=== PATIENT | female | born 1980 | race Caucasian/White ===

== ENCOUNTER 2017-03-26 13:28 | Inpatient (IN) | payer OTHER ==
[~2017-03-26] VITALS: Ht 170.2 cm; Wt 82.3 kg
[~2017-03-26 13:28] MED LIST: CYCLOBENZAPRINE10 MG PO; DILAUDID4 MG PO; FLOVENT HFA110 MCG IN; GABAPENTIN800 MG PO; NAPROSYN500 MG PO; NORTRIPTYLINE H50 MG PO; PERPHENAZINE16 MG PO; PROAIR HFA IN; TRAMADOL HCL50 MG PO; TRILAFON4 MG PO
--- NOTE | 2017-03-26 15:07 | DIAGNOSTIC IMAGING REPORT ---
PROCEDURE: CT ABD/PELVIS WITH CONTRAST INDICATION: Upper abdominal pain. Nausea. Elevated liver function studies. History of section. TECHNIQUE: 125 ml of Isovue 300 were injected intravenously and axial images were obtained of the entire abdomen and pelvis with sagittal and coronal reformations. COMPARISON: None. FINDINGS: ABDOMEN: Mild generalized thickening and inflammatory changes of the pancreas with mild dilation of the pancreatic duct, and moderate inflammation of the second segment of the duodenum. Associated small amount of retroperitoneal fluid in the region of the duodenum and pancreatic tail. There is mild dilation of the common bile duct (8 mm). Gallbladder appears normal (noncalcified calculi not exclude). Moderate fatty infiltration of the liver. Spleen (10.3 cm), kidneys, and aorta are normal. Bowel pattern is normal, including appendix. There is a 30% old compression deformity of the T10 vertebral body. PELVIS: Uterus and adnexal structures are normal. No evidence of free fluid. IMPRESSION: 1. Mild inflammatory changes of the pancreas and second segment of the duodenum, with mild dilation pancreatic duct. Overall appearance is consistent with pancreatitis, although duodenitis / peptic disease might be considered. 2. Associated small amount of retroperitoneal fluid surrounding the duodenum and pancreatic tail. 3. Mild dilation of the common bile duct (8 mm). Consider occult common duct stone. 4. Moderate fatty infiltration of the liver. 5. There is a 30% old compression deformity T10 vertebral body. 6. Findings discussed with YORDY Patel. All CT scans at this facility use dose modulation, iterative reconstruction, and/or weight-based dosing when appropriate to reduce radiation dose to as low as reasonably achievable.
--- NOTE | 2017-03-26 16:50 | ED CLINICAL REPORT ---
Clinical Report - Physicians/Mid Levels [facility] [address] [place] [address] 03/26/2017 13:29 [id number] Time Seen: 13:45 Mar 26 2017. Arrived- By private vehicle. Historian- patient. HISTORY OF PRESENT ILLNESS Chief Complaint: ABDOMINAL PAIN. It is described as "pain", sharp, stabbing and cramping. Not located in right flank. It is described as located in the right upper quadrant, epigastric area and left upper quadrant and in the upper abdomen. This started today and is still present. The patient has had nausea and loss of appetite. No vomiting or diarrhea. (Abdominal pain since this morning. No sick contacts. No fever. No h/o similar. Patient has had difficulty eating and she has had no appetite. Yesterday she was feeling fine. Denies any melena or hematochezia.). No recent travel. REVIEW OF SYSTEMS No constipation, black stools, difficulty with urination, pain with urination or urinary frequency. No fever, headache, sore throat, chest pain or difficulty breathing. No joint pain, skin rash or chills. All systems otherwise negative, except as recorded above. PAST HISTORY No history of gallstones. Has not had urinary calculi. Problems: Depression. Asthma. Schizophrenia. Dysuria. Alcohol Intoxication. Additional Surgeries: . Knee Surgery. Medications: Gabapentin Oral. Albuterol Sulfate Inhalation. Senna Oral. Cymbalta Oral. Perphenazine Oral. TraMADol HCl Oral. Nortriptyline HCl Oral. Allergies: Penicillins. Sulfa Antibiotics. SOCIAL HISTORY Current every day heavy tobacco smoker- more than 2 packs per day. Alcohol use; consumes two beers a day. History of drug use former, clean for 10 years. ADDITIONAL NOTES The nursing notes have been reviewed. PHYSICAL EXAM Vital Signs: 03/26/2017 13:37 BP: 109/70. HR: 92. RR: 16. O2 saturation: 96%. Temp: 98.7 F. Pain level now: 10. Appearance: Alert. No acute distress. Eyes: Eyes normal inspection. Neck: Normal inspection. Neck supple. CVS: Normal heart rate and rhythm. Heart sounds normal. Rhythm normal. No cardiac murmur. Respiratory: No respiratory distress. Breath sounds normal. Abdomen: Moderate tenderness in the epigastric area. No obesity. Back: Normal inspection. Skin: Skin warm. Normal skin color. Neuro: Oriented X 3. LABS, X-RAYS, AND EKG Abdominal CT: IMPRESSION: 1. Mild inflammatory changes of the pancreas and second segment of the duodenum, with mild dilation pancreatic duct. Overall appearance is consistent with pancreatitis, although duodenitis / peptic disease might be considered. 2. Associated small amount of retroperitoneal fluid surrounding the duodenum and pancreatic tail. 3. Mild dilation of the common bile duct (8 mm). Consider occult common duct stone. 4. Moderate fatty infiltration of the liver. 5. There is a 30% old compression deformity T10 vertebral body. 6. Findings discussed with Lizy Craven PAC. All CT scans at this facility use dose modulation, iterative reconstruction, and/or weight-based dosing when appropriate to reduce radiation dose to as low as reasonably achievable. Electronically Final signed by:Enrike Storey MD 03/26/2017 3:02:41 PM. Abdominal Sonogram: (IMPRESSION: 1. Moderately distended gallbladder with dilated common bile duct (8 mm). While there is no evidence of gallstones, consider occult common duct stone. 2. Mild prominence of the pancreatic duct (2 mm). 3. Moderate fatty infiltration of the liver. 4. Findings discussed with YORDY Patel. Electronically Final signed by:Enrike Storey MD 03/26/2017 4:51:36 PM). Laboratory Tests: PT with INR: (TERI: 03/26/2017 13:50) ( MsgRcvd 03/26/2017 14:54) Final results Test Result Flag Units (Reference) INR 0.9 (0.8-1.2) Low Intensity Therapy: INR 1.5-2.0 PT range 18.5-23.1Mod.Intensity Therapy: INR 2.0-3.0 PT range 23.1-31.5High Intensity Therapy: INR 2.5-3.5 PT range 27.4-35.5High Intensity Therapy 2: INR 3.0-4.0 PT range 31.5-39.3 APTT 31 SECONDS (24-34) Ethyl Alcohol: (TERI: 03/26/2017 13:50) ( [facility] [place] 03/26/2017 16:42) Final results Test Result Flag Units (Reference) ETHYL ALCOHOL <3 L mg/dL (3-10) Urine Drug Screen: (TERI: 03/26/2017 14:15) ( [facility] [place] 03/26/2017 15:03) Final results Test Result Flag Units (Reference) AMPHETAMINE/METHAMPHETAMINE NEGATIVE (NEGATIVE) BARBITURATE NEGATIVE (NEGATIVE) BENZODIAZEPINE NEGATIVE (NEGATIVE) CANNABINOID NEGATIVE (NEGATIVE) COCAINE NEGATIVE (NEGATIVE) ECSTASY NEGATIVE (NEGATIVE) METHADONE NEGATIVE (NEGATIVE) OPIATE NEGATIVE (NEGATIVE) The urine drug screen is a qualitative screening test fordrug overdose and abuse. All screen results should beconsidered as presumptive.Drugs screened for are as follows:BenzodiazepinesCocaineAmphetamines/MetamphetaminesTHC (Tetrahydrocannabinol)OpiatesBarbituratesEcstasyMethadonePositive results are unconfirmed. For confirmation, notifythe lab for the specimen to be sent to the reference lab.All confirmations must be performed by a differentmethodology.The ingestion of natural herbal and plant productscontaining Ephedra/Ephedra metabolites can produce in urineone or more substances capable of cross reacting withamphetamine/methamphetamine immunoassays. These testsprovide a preliminary result only. A more specificalternative chemical method must be used to obtain aconfirmed analytical result. Lipase: (TERI: 03/26/2017 13:50) ( [facility] [place] 03/26/2017 14:45) Final results Test Result Flag Units (Reference) LIPASE 5489 H U/L (73-393) AMYLASE 294 H U/L (25-115) TROPONIN I <0.05 ng/mL (0.00-1.5) TROPONIN REFERENCE RANGE:<0.1 NEGATIVE0.1-1.5 INDETERMINANT>1.5 POSITIVE . PROGRESS AND PROCEDURES Course of Care: Outpatient labs from 12:21: cbc: wbc: 8.28 rbc 4 hgb 12.6 hct 12.6 MCV 99 [id number] Neut: 6.92 CMP: NA 130 K4.2 Chloride 96 CO2 20 Bun 6 cr 0.73 Glucose 113 t. bili 0.6 Ca 9.0 AST: 371 ALT 95 T. Protein 6.7 Amylase: 269 Lipase > 600 breathelyzer 0 neg upreg. Here in here patient with epigastric abdominal pain, no nausea or vomiting. Patient was drinking 2 beers a day over the last 1 year. Denies any recent drug use. Denies history of similar pain. Denies any sick contacts, fevers or chills. Patient with no signs of leukocytosis, elevated lipase at greater than 5000, with elevated LFT as well as elevated alkaline phosphatase. T bili is unremarkable. Patient with CT contrast of abdomen with signs of pancreatitis, with colon bile duct dilation recommended for ultrasound. Ultrasound was signs of common bile duct dilation. Case discussed with Dr. ren, on-call hospitalist, who accepts the patient for admission, and recommend surgical consult as well. Case discussed with , who will consult for the patient, and is recommending a HIDA scan in the morning. 03/26/2017 16:41 BP: 123/80. HR: 86. RR: 15. O2 saturation: 98%. Pain level now: 04/22. 03/26/2017 15:30 BP: 121/77. HR: 84. RR: 17. O2 saturation: 96%. Pain level now: 04/22. 03/26/2017 15:00 BP: 121/74. HR: 88. RR: 15. O2 saturation: 94%. Pain level now: 04/22. 03/26/2017 14:42 BP: 123/78. HR: 90. RR: 15. O2 saturation: 96%. Pain level now: 04/22. Patient is stable. Symptoms better. Discussed case with hospitalist. Agreed upon treatment plan and decision to admit. Health care provider will see patient in ED. Call placed to health care provider Surgeon, will see patient in hospital. Patient/family counseled. Disposition: Admitted to Acute Care. CLINICAL IMPRESSION Substance dependence problems: dependence on alcohol. Pancreatitis. (Electronically signed by Nathalie Craven P.A.-C 03/26/2017 17:16) Addenda for KANDI MANRIQUEZ VisitID: [id number] Date: 03/26/2017 03/26/2017 17:23 EKG : vent rate [address] changes or elevationpr interval 154 normal sinus rhythm. (Electronically signed by Nathalie Craven P.A.-C - 03/26/2017 17:23)
--- NOTE | 2017-03-26 16:50 | ED CLINICAL REPORT ---
Clinical Report - Physicians/Mid Levels [facility] [address] [place] [address] 03/26/2017 13:29 [id number] Time Seen: 13:45 Mar 26 2017. Arrived- By private vehicle. Historian- patient. HISTORY OF PRESENT ILLNESS Chief Complaint: ABDOMINAL PAIN. It is described as "pain", sharp, stabbing and cramping. Not located in right flank. It is described as located in the right upper quadrant, epigastric area and left upper quadrant and in the upper abdomen. This started today and is still present. The patient has had nausea and loss of appetite. No vomiting or diarrhea. (Abdominal pain since this morning. No sick contacts. No fever. No h/o similar. Patient has had difficulty eating and she has had no appetite. Yesterday she was feeling fine. Denies any melena or hematochezia.). No recent travel. REVIEW OF SYSTEMS No constipation, black stools, difficulty with urination, pain with urination or urinary frequency. No fever, headache, sore throat, chest pain or difficulty breathing. No joint pain, skin rash or chills. All systems otherwise negative, except as recorded above. PAST HISTORY No history of gallstones. Has not had urinary calculi. Problems: Depression. Asthma. Schizophrenia. Dysuria. Alcohol Intoxication. Additional Surgeries: . Knee Surgery. Medications: Gabapentin Oral. Albuterol Sulfate Inhalation. Senna Oral. Cymbalta Oral. Perphenazine Oral. TraMADol HCl Oral. Nortriptyline HCl Oral. Allergies: Penicillins. Sulfa Antibiotics. SOCIAL HISTORY Current every day heavy tobacco smoker- more than 2 packs per day. Alcohol use; consumes two beers a day. History of drug use former, clean for 10 years. ADDITIONAL NOTES The nursing notes have been reviewed. PHYSICAL EXAM Vital Signs: 03/26/2017 13:37 BP: 109/70. HR: 92. RR: 16. O2 saturation: 96%. Temp: 98.7 F. Pain level now: 10. Appearance: Alert. No acute distress. Eyes: Eyes normal inspection. Neck: Normal inspection. Neck supple. CVS: Normal heart rate and rhythm. Heart sounds normal. Rhythm normal. No cardiac murmur. Respiratory: No respiratory distress. Breath sounds normal. Abdomen: Moderate tenderness in the epigastric area. No obesity. Back: Normal inspection. Skin: Skin warm. Normal skin color. Neuro: Oriented X 3. LABS, X-RAYS, AND EKG Abdominal CT: IMPRESSION: 1. Mild inflammatory changes of the pancreas and second segment of the duodenum, with mild dilation pancreatic duct. Overall appearance is consistent with pancreatitis, although duodenitis / peptic disease might be considered. 2. Associated small amount of retroperitoneal fluid surrounding the duodenum and pancreatic tail. 3. Mild dilation of the common bile duct (8 mm). Consider occult common duct stone. 4. Moderate fatty infiltration of the liver. 5. There is a 30% old compression deformity T10 vertebral body. 6. Findings discussed with Lizy Craven PAC. All CT scans at this facility use dose modulation, iterative reconstruction, and/or weight-based dosing when appropriate to reduce radiation dose to as low as reasonably achievable. Electronically Final signed by:Enrike Storey MD 03/26/2017 3:02:41 PM. Abdominal Sonogram: (IMPRESSION: 1. Moderately distended gallbladder with dilated common bile duct (8 mm). While there is no evidence of gallstones, consider occult common duct stone. 2. Mild prominence of the pancreatic duct (2 mm). 3. Moderate fatty infiltration of the liver. 4. Findings discussed with YORDY Patel. Electronically Final signed by:Enrike Storey MD 03/26/2017 4:51:36 PM). Laboratory Tests: PT with INR: (TERI: 03/26/2017 13:50) ( MsgRcvd 03/26/2017 14:54) Final results Test Result Flag Units (Reference) INR 0.9 (0.8-1.2) Low Intensity Therapy: INR 1.5-2.0 PT range 18.5-23.1Mod.Intensity Therapy: INR 2.0-3.0 PT range 23.1-31.5High Intensity Therapy: INR 2.5-3.5 PT range 27.4-35.5High Intensity Therapy 2: INR 3.0-4.0 PT range 31.5-39.3 APTT 31 SECONDS (24-34) Ethyl Alcohol: (TERI: 03/26/2017 13:50) ( [facility] 03/26/[facility] 16:42) Final results Test Result Flag Units (Reference) ETHYL ALCOHOL <3 L mg/dL (3-10) Urine Drug Screen: (TERI: 03/26/2017 14:15) ( [facility] 03/26/2017 15:03) Final results Test Result Flag Units (Reference) AMPHETAMINE/METHAMPHETAMINE NEGATIVE (NEGATIVE) BARBITURATE NEGATIVE (NEGATIVE) BENZODIAZEPINE NEGATIVE (NEGATIVE) CANNABINOID NEGATIVE (NEGATIVE) COCAINE NEGATIVE (NEGATIVE) ECSTASY NEGATIVE (NEGATIVE) METHADONE NEGATIVE (NEGATIVE) OPIATE NEGATIVE (NEGATIVE) The urine drug screen is a qualitative screening test fordrug overdose and abuse. All screen results should beconsidered as presumptive.Drugs screened for are as follows:BenzodiazepinesCocaineAmphetamines/MetamphetaminesTHC (Tetrahydrocannabinol)OpiatesBarbituratesEcstasyMethadonePositive results are unconfirmed. For confirmation, notifythe lab for the specimen to be sent to the reference lab.All confirmations must be performed by a differentmethodology.The ingestion of natural herbal and plant productscontaining Ephedra/Ephedra metabolites can produce in urineone or more substances capable of cross reacting withamphetamine/methamphetamine immunoassays. These testsprovide a preliminary result only. A more specificalternative chemical method must be used to obtain aconfirmed analytical result. Lipase: (TERI: 03/26/2017 13:50) ( [facility] [place] 03/26/2017 14:45) Final results Test Result Flag Units (Reference) LIPASE 5489 H U/L (73-393) AMYLASE 294 H U/L (25-115) TROPONIN I <0.05 ng/mL (0.00-1.5) TROPONIN REFERENCE RANGE:<0.1 NEGATIVE0.1-1.5 INDETERMINANT>1.5 POSITIVE . PROGRESS AND PROCEDURES Course of Care: Outpatient labs from 12:21: cbc: wbc: 8.28 rbc 4 hgb 12.6 hct 12.6 MCV 99 [id number] Neut: 6.92 CMP: NA 130 K4.2 Chloride 96 CO2 20 Bun 6 cr 0.73 Glucose 113 t. bili 0.6 Ca 9.0 AST: 371 ALT 95 T. Protein 6.7 Amylase: 269 Lipase > 600 breathelyzer 0 neg upreg. Here in here patient with epigastric abdominal pain, no nausea or vomiting. Patient was drinking 2 beers a day over the last 1 year. Denies any recent drug use. Denies history of similar pain. Denies any sick contacts, fevers or chills. Patient with no signs of leukocytosis, elevated lipase at greater than 5000, with elevated LFT as well as elevated alkaline phosphatase. T bili is unremarkable. Patient with CT contrast of abdomen with signs of pancreatitis, with colon bile duct dilation recommended for ultrasound. Ultrasound was signs of common bile duct dilation. Case discussed with Dr. ren, on-call hospitalist, who accepts the patient for admission, and recommend surgical consult as well. Case discussed with , who will consult for the patient, and is recommending a HIDA scan in the morning. 03/26/2017 16:41 BP: 123/80. HR: 86. RR: 15. O2 saturation: 98%. Pain level now: 04/22. 03/26/2017 15:30 BP: 121/77. HR: 84. RR: 17. O2 saturation: 96%. Pain level now: 04/22. 03/26/2017 15:00 BP: 121/74. HR: 88. RR: 15. O2 saturation: 94%. Pain level now: 04/22. 03/26/2017 14:42 BP: 123/78. HR: 90. RR: 15. O2 saturation: 96%. Pain level now: 04/22. Patient is stable. Symptoms better. Discussed case with hospitalist. Agreed upon treatment plan and decision to admit. Health care provider will see patient in ED. Call placed to health care provider Surgeon, will see patient in hospital. Patient/family counseled. Disposition: Admitted to Acute Care. CLINICAL IMPRESSION Substance dependence problems: dependence on alcohol. Pancreatitis. (Electronically signed by Nathalie Craven P.A.-C 03/26/2017 17:16) Addenda for KANDI MANRIQUEZ VisitID: [id number] Date: 03/26/2017 03/26/2017 17:23 EKG : vent rate [address] changes or elevationpr interval 154 normal sinus rhythm. (Electronically signed by Nathalie Craven P.A.-C - 03/26/2017 17:23)
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
--- NOTE | 2017-03-26 16:51 | ED ORDER SUMMARY ---
..... Patient: KANDI MANRIQUEZ OrderSheet [facility] VisitID: [id number] [address] [place] [address] 36y, F Registration Date/Time: 03/26/2017 ORDER SHEET Weight: 81.6 kg Allergies: Penicillins, Sulfa Antibiotics GENERAL ORDERS: CBC w Diff Urgent (13:45 03/26/2017 EKoroleva P.A.-C) (Cancelled: Other13:46 EKoroleva P.A.-C) CMP Urgent (13:45 03/26/2017 EKoroleva P.A.-C) (Cancelled: Other13:46 EKoroleva P.A.-C) UA-Culture if indicated Urgent (13:45 03/26/2017 EKoroleva P.A.-C) (Ack 13:47 Brennan) (14:24 RMarsden R.N.) PT with INR Urgent (13:45 03/26/2017 EKoroleva P.A.-C) (Ack 13:47 KHoerner) (13:52 JDeElena R.N.) PTT Urgent (13:45 03/26/2017 EKoroleva P.A.-C) (Ack 13:47 KHoerner) (13:52 JDeElena R.N.) Lipase Urgent (13:45 03/26/2017 EKoroleva P.A.-C) (Ack 13:47 KHoerner) (13:52 JDeElena R.N.) Amylase Urgent (13:45 03/26/2017 EKoroleva P.A.-C) (Ack 13:47 KHoerner) (13:52 JDeElena R.N.) Troponin-I Urgent (13:45 03/26/2017 EKoroleva P.A.-C) (Ack 13:47 KHoerner) (13:52 JDeElena R.N.) EKG - ER Stat (13:45 03/26/2017 EKoroleva P.A.-C) (13:47 JDeElena R.N.) (13:47 KHoerner) CT Abd/Pel w Cont (No) (outpatient lab 0.73) Urgent (13:46 03/26/2017 EKoroleva P.A.-C) (Ack 13:50 KHoerner) (14:43 RMarsden R.N.) POC - Urine hCG (13:50 03/26/2017 EKoroleva P.A.-C) (14:23 RMarsden R.N.) Urine Drug Screen Urgent (14:27 03/26/2017 EKoroleva P.A.-C) (14:28 KHoerner) UA-Culture if indicated Urgent (14:27 03/26/2017 EKoroleva P.A.-C) (Cancelled: Other14:27 EKoroleva P.A.-C) US Abdomen Limited (No) Urgent (15:06 03/26/2017 EKoroleva P.A.-C) (Ack 15:08 KHoerner) (16:20 RMarsden R.N.) PCT (Procalcitonin) Urgent (16:26 03/26/2017 EKoroleva P.A.-C) (16:27 RMarsden R.N.) Ethyl Alcohol Urgent (16:31 03/26/2017 EKoroleva P.A.-C) (Ack 16:35 KHoerner) (16:49 RMarsden R.N.) Lactate, Serum Urgent (16:37 03/26/2017 EKoroleva P.A.-C) (Ack 16:44 KHoerner) (16:49 RMarsden R.N.) NPO (17:00 03/26/2017 EKoroleva P.A.-C) (17:14 RMarsden R.N.) MEDICATION ORDERS: IV FLUIDS: IV NS : initial bolus 1000 mL (1000 mL/hr), then 1000 mL/hr for X1 (NOW); Francisco Javier (13:45 03/26/2017 EKoroleva P.A.-C) (13:52 JDeElena R.N.) IV Saline Lock (13:45 03/26/2017 EKoroleva P.A.-C) (13:52 JDeElena R.N.) Dilaudid IV 1 mg (HIGH ALERT MEDICATION, NOW) (14:44 03/26/2017 Sara Moore-C) (Ack 14:44 RMarsden R.N.) (14:47 RMarsden R.N.) IV NS with NS 2 additional liters @1000ml/hr (for a total of 3 liters): initial bolus none -, then none - (NOW) (14:52 03/26/2017 Pedritoeck R.N. verbal order read back to Sara Jerez) (Ack 15:13 RMarsden R.N.) (15:19 RMarsden R.N.) Dilaudid IV 1 mg (HIGH ALERT MEDICATION, NOW) (17:00 03/26/2017 Sara Jerez) (Ack 17:02 RMarsden R.N.) (17:10 RMarsden R.N.) ORDER SHEET NOTES: [Electronically signed by Nathalie Craven P.A.-C (17:16 03/26/2017)] [Electronically signed by Mary Roth R.N. (19:06 03/26/2017)] [Electronically locked/signed by Mary Roth R.N. (19:06 03/26/2017)]
--- NOTE | 2017-03-26 16:51 | ED ORDER SUMMARY ---
..... Patient: KANDI MANRIQUEZ OrderSheet [facility] VisitID: [id number] [address] [place] [address] 36y, F Registration Date/Time: 03/26/2017 ORDER SHEET Weight: 81.6 kg Allergies: Penicillins, Sulfa Antibiotics GENERAL ORDERS: CBC w Diff Urgent (13:45 03/26/2017 EKoroleva P.A.-C) (Cancelled: Other13:46 EKoroleva P.A.-C) CMP Urgent (13:45 03/26/2017 EKoroleva P.A.-C) (Cancelled: Other13:46 EKoroleva P.A.-C) UA-Culture if indicated Urgent (13:45 03/26/2017 EKoroleva P.A.-C) (Ack 13:47 Brennan) (14:24 RMarsden R.N.) PT with INR Urgent (13:45 03/26/2017 EKoroleva P.A.-C) (Ack 13:47 KHoerner) (13:52 JDeElena R.N.) PTT Urgent (13:45 03/26/2017 EKoroleva P.A.-C) (Ack 13:47 KHoerner) (13:52 JDeElena R.N.) Lipase Urgent (13:45 03/26/2017 EKoroleva P.A.-C) (Ack 13:47 KHoerner) (13:52 JDeElena R.N.) Amylase Urgent (13:45 03/26/2017 EKoroleva P.A.-C) (Ack 13:47 KHoerner) (13:52 JDeElena R.N.) Troponin-I Urgent (13:45 03/26/2017 EKoroleva P.A.-C) (Ack 13:47 KHoerner) (13:52 JDeElena R.N.) EKG - ER Stat (13:45 03/26/2017 EKoroleva P.A.-C) (13:47 JDeElena R.N.) (13:47 KHoerner) CT Abd/Pel w Cont (No) (outpatient lab 0.73) Urgent (13:46 03/26/2017 EKoroleva P.A.-C) (Ack 13:50 KHoerner) (14:43 RMarsden R.N.) POC - Urine hCG (13:50 03/26/2017 EKoroleva P.A.-C) (14:23 RMarsden R.N.) Urine Drug Screen Urgent (14:27 03/26/2017 EKoroleva P.A.-C) (14:28 KHoerner) UA-Culture if indicated Urgent (14:27 03/26/2017 EKoroleva P.A.-C) (Cancelled: Other14:27 EKoroleva P.A.-C) US Abdomen Limited (No) Urgent (15:06 03/26/2017 EKoroleva P.A.-C) (Ack 15:08 KHoerner) (16:20 RMarsden R.N.) PCT (Procalcitonin) Urgent (16:26 03/26/2017 EKoroleva P.A.-C) (16:27 RMarsden R.N.) Ethyl Alcohol Urgent (16:31 03/26/2017 EKoroleva P.A.-C) (Ack 16:35 KHoerner) (16:49 RMarsden R.N.) Lactate, Serum Urgent (16:37 03/26/2017 EKoroleva P.A.-C) (Ack 16:44 KHoerner) (16:49 RMarsden R.N.) NPO (17:00 03/26/2017 EKoroleva P.A.-C) (17:14 RMarsden R.N.) MEDICATION ORDERS: IV FLUIDS: IV NS : initial bolus 1000 mL (1000 mL/hr), then 1000 mL/hr for X1 (NOW); Francisco Javier (13:45 03/26/2017 EKoroleva P.A.-C) (13:52 JDeElena R.N.) IV Saline Lock (13:45 03/26/2017 EKoroleva P.A.-C) (13:52 JDeElena R.N.) Dilaudid IV 1 mg (HIGH ALERT MEDICATION, NOW) (14:44 03/26/2017 Sara Moore-C) (Ack 14:44 RMarsden R.N.) (14:47 RMarsden R.N.) IV NS with NS 2 additional liters @1000ml/hr (for a total of 3 liters): initial bolus none -, then none - (NOW) (14:52 03/26/2017 Pedritoeck R.N. verbal order read back to Sara Jerez) (Ack 15:13 RMarsden R.N.) (15:19 RMarsden R.N.) Dilaudid IV 1 mg (HIGH ALERT MEDICATION, NOW) (17:00 03/26/2017 Sara Jerez) (Ack 17:02 RMarsden R.N.) (17:10 RMarsden R.N.) ORDER SHEET NOTES: [Electronically signed by Nathalie Craven P.A.-C (17:16 03/26/2017)] [Electronically signed by Mary Roth R.N. (19:06 03/26/2017)] [Electronically locked/signed by Mary Roth R.N. (19:06 03/26/2017)]
--- NOTE | 2017-03-26 16:55 | DIAGNOSTIC IMAGING REPORT ---
PROCEDURE: US ABDOMEN ULTRASOUND-LIMITED INDICATION: RUQ PAIN TECHNIQUE: Ascencio scale and color Doppler sonographic images of the abdomen were obtained. COMPARISON: None. FINDINGS: Gallbladder is moderately distended (12.5 cm), but no evidence of wall thickening and no evidence of gallstones. Common duct is moderately dilated (8 mm). There is mild prominence of the pancreatic duct (is 2 mm). There is increased echogenicity liver compatible fatty infiltration. Portions of the aorta and right kidney are seen, and are normal. IMPRESSION: 1. Moderately distended gallbladder with dilated common bile duct (8 mm). While there is no evidence of gallstones, consider occult common duct stone. 2. Mild prominence of the pancreatic duct (2 mm). 3. Moderate fatty infiltration of the liver. 4. Findings discussed with PAC. Joreg
[2017-03-26 18:38] VITALS: BP 113/77
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
--- NOTE | 2017-03-26 19:07 | ED MAR SUMMARY ---
..... Medication Administration Record [facility] [address] [place] [address] Patient: KANDI MANRIQUEZ Visit ID: [id number] 36y, F Weight: 81.6 kg Height/Length: 67 in BMI: 28.2 ALLERGIES: Sulfa Antibiotics, Penicillins Start 13:52 03/26/2017 Gómez Maguire R.N., Stop 15:19 03/26/2017 Mary Roth R.N. Medication Administered: IV NS (SALINE), Dose: IV Fluids, Rate: 1000 mL/hr, Bolus: 1000 mL over 1 hour(s), Dispensed: 1000 mL bag, Site: #1 left hand. Medication Ordered: IV NS : initial bolus 1000 mL (1000 mL/hr), then 1000 mL/hr for X1 (NOW); Francisco Javier. Given 14:47 03/26/2017 Mary Roth R.N. Medication Administered: DILAUDID [IVP] (HYDROMORPHONE HCL PF), Dose: 1 mg IVP over 2 minute(s), Site: #1 left hand. Medication Ordered: Dilaudid IV 1 mg (HIGH ALERT MEDICATION, NOW). Start 15:19 03/26/2017 Mary Roth R.N. Medication Administered: IV NS (SALINE), Dose: IV Fluids, Bolus: 1000 mL wide open, Dispensed: 1000 mL bag, Site: #1 left hand. Medication Ordered: IV NS with NS 2 additional liters @1000ml/hr (for a total of 3 liters): initial bolus none -, then none - (NOW). Given 17:10 03/26/2017 Mary Roth R.N. Medication Administered: DILAUDID [IVP] (HYDROMORPHONE HCL PF), Dose: 1 mg IVP over 2 minute(s), Site: #1 left hand. Medication Ordered: Dilaudid IV 1 mg (HIGH ALERT MEDICATION, NOW).
--- NOTE | 2017-03-26 19:07 | ED DISCHARGE INSTRUCTIONS ---
Patient: KANDI MANRIQUEZ General Instructions [facility] VisitID: [id number] [address] [place] [address] 36y, F Registration Date/Time: 03/26/2017 Substance dependence problems: dependence on alcohol. Pancreatitis. (Electronically signed by Nathalie Craven P.A.-C 03/26/2017 17:16)
--- NOTE | 2017-03-26 19:07 | ED MAR SUMMARY ---
..... Medication Administration Record [facility] [address] [place] [address] Patient: KANDI MANRIQUEZ Visit ID: [id number] 36y, F Weight: 81.6 kg Height/Length: 67 in BMI: 28.2 ALLERGIES: Sulfa Antibiotics, Penicillins Start 13:52 03/26/2017 Gómez Maguire R.N., Stop 15:19 03/26/2017 Mary Roth R.N. Medication Administered: IV NS (SALINE), Dose: IV Fluids, Rate: 1000 mL/hr, Bolus: 1000 mL over 1 hour(s), Dispensed: 1000 mL bag, Site: #1 left hand. Medication Ordered: IV NS : initial bolus 1000 mL (1000 mL/hr), then 1000 mL/hr for X1 (NOW); Francisco Javier. Given 14:47 03/26/2017 Mary Roth R.N. Medication Administered: DILAUDID [IVP] (HYDROMORPHONE HCL PF), Dose: 1 mg IVP over 2 minute(s), Site: #1 left hand. Medication Ordered: Dilaudid IV 1 mg (HIGH ALERT MEDICATION, NOW). Start 15:19 03/26/2017 Mary Roth R.N. Medication Administered: IV NS (SALINE), Dose: IV Fluids, Bolus: 1000 mL wide open, Dispensed: 1000 mL bag, Site: #1 left hand. Medication Ordered: IV NS with NS 2 additional liters @1000ml/hr (for a total of 3 liters): initial bolus none -, then none - (NOW). Given 17:10 03/26/2017 Mary Roth R.N. Medication Administered: DILAUDID [IVP] (HYDROMORPHONE HCL PF), Dose: 1 mg IVP over 2 minute(s), Site: #1 left hand. Medication Ordered: Dilaudid IV 1 mg (HIGH ALERT MEDICATION, NOW).
--- NOTE | 2017-03-26 19:07 | ED MED RECONCILIATION SUMMARY ---
Patient: KANDI MANRIQUEZ Medication Reconciliation Report [facility] VisitID: [id number] [address] [place] [address] 36y, F Registration Date/Time: 03/26/2017 Weight: 81.6 kg Height/Length: 67 in. BMI: 28.2 ALLERGIES: Penicillins, Sulfa Antibiotics The patient's Home Medications are listed below: THE FOLLOWING MEDICATIONS NEED TO BE RECONCILED: Albuterol Sulfate Inhalation Cymbalta Oral Gabapentin Oral Nortriptyline HCl Oral Perphenazine Oral Senna Oral TraMADol HCl Oral The source(s) of the original Home Medication information: Not obtained. The following Medications were given to the patient in the Emergency Department: IV NS IV Fluids bolus 1000 mL over 1 hour(s), then 1000 mL/hr, administered: 03/26/2017 1:52:00 PM Dilaudid [IVP] IVP 1 mg, administered: 03/26/2017 2:47:00 PM IV NS IV Fluids bolus 1000 mL wide open, administered: 03/26/2017 3:19:00 PM Dilaudid [IVP] IVP 1 mg, administered: 03/26/2017 5:10:00 PM The following Medications were prescribed to the patient: None.
--- NOTE | 2017-03-26 19:07 | ED DISCHARGE INSTRUCTIONS ---
Patient: KANDI MANRIQUEZ General Instructions [facility] VisitID: [id number] [address] [place] [address] 36y, F Registration Date/Time: 03/26/2017 Substance dependence problems: dependence on alcohol. Pancreatitis. (Electronically signed by Nathalie Craven P.A.-C 03/26/2017 17:16)
--- NOTE | 2017-03-26 19:07 | ED MED RECONCILIATION SUMMARY ---
Patient: KANDI MANRIQUEZ Medication Reconciliation Report [facility] VisitID: [id number] [address] [place] [address] 36y, F Registration Date/Time: 03/26/2017 Weight: 81.6 kg Height/Length: 67 in. BMI: 28.2 ALLERGIES: Penicillins, Sulfa Antibiotics The patient's Home Medications are listed below: THE FOLLOWING MEDICATIONS NEED TO BE RECONCILED: Albuterol Sulfate Inhalation Cymbalta Oral Gabapentin Oral Nortriptyline HCl Oral Perphenazine Oral Senna Oral TraMADol HCl Oral The source(s) of the original Home Medication information: Not obtained. The following Medications were given to the patient in the Emergency Department: IV NS IV Fluids bolus 1000 mL over 1 hour(s), then 1000 mL/hr, administered: 03/26/2017 1:52:00 PM Dilaudid [IVP] IVP 1 mg, administered: 03/26/2017 2:47:00 PM IV NS IV Fluids bolus 1000 mL wide open, administered: 03/26/2017 3:19:00 PM Dilaudid [IVP] IVP 1 mg, administered: 03/26/2017 5:10:00 PM The following Medications were prescribed to the patient: None.
[2017-03-26 22:21] VITALS: BP 125/79
[2017-03-27] VITALS (7 sets, daily range): BP systolic 116–141; BP diastolic 72–92
[2017-03-27] MEDS ORDERED: CYCLOBENZAPRINE10 MG PO (01:16)
[2017-03-27] MEDS ORDERED: CYMBALTA20 MG PO (01:17)
[2017-03-27] MEDS ORDERED: SENNA-LAX8.6 MG PO (01:18)
--- NOTE | 2017-03-27 07:25 | Progress Note ---
Subjective General Note Date: March 27, 2017 Admission Date: March 26, 2017 Hospital Day: 2 PCP: Darya Conte M.D. Status: Inpatient, CCU Advanced Directive: FULL CODE Room: 303 Brief History: The patient is a 36-year-old white female with a significant past medical history of paranoid schizophrenia, depression, asthma, fibromyalgia, nicootene dependance alcohol use who presented to [facility] emergency room on the day of admission secondary to complaints of pain in the abdominal region. Patient had previously been at the [facility] urgent care clinic where an elevated lipase was discovered. found. She was transferred to the the [facility] ED for further evaluations. CT scan and ultrasound study of the pancreas and gallbladder showed possibility of a stone had passed. Also showing were elevated transaminases, but a normal T bili. Secondary to the above, the patient was admitted by Alejandro Robles M.D. for further evaluation and treatment. For other history present illness, past medical history, family history, social history, review of systems, and admission physical examination please see the patient's history and physical examination and ER visit note in the patient's medical record. Subjective: The patient states her status is improved today. Decrease abdominal pain. No nausea or vomiting. Patient requests: None Medications and Allergies Medications Current Medications Sig/Alyce Start time Last Medication Dose Route Stop Time Status Admin Cyclobenzaprine HCl 10 MG TID 03/26 2200 AC 03/27 PO 0515 Duloxetine HCl 30 MG TID 03/26 2200 AC 05/ PO 0515 Gabapentin 900 MG TID 03/26 2200 AC 05/ PO 0515 Famotidine/Sodium 50 ML Q12HR 03/26 2100 AC 03/26 Chloride IV 213 Nortriptyline HCl 50 MG QHS 03/26 2100 AC 0514 PO 2133 Thiamine HCl 100 MG 1400 03/26 2037 AC 0514 Dextrose/Water 50 ML IV 210 Fluticasone See Dose RTBID 03/26 2000 AC Propionate Insts (1) IN Albuterol/Ipratropium 3 ML RTQ6H PRN 03/26 1845 AC IN Tramadol HCl See Dose TID PRN 03/26 1845 AC Insts (2) PO Nicotine 21 MG DAILY 03/26 1838 AC 03/26 TOP 2009 Hydromorphone HCl 1 MG Q1H PRN 05/14 1830 AC 05/15 IV 0324 Ondansetron HCl 4 MG Q6H PRN 03/26 183 03/27 IV 0329 Sodium Chloride 1,000 ML ASDIRECTED 03/26 170 AC 03/27 IV 03/27 170 032 Dose Instructions: (1)Fluticasone Propionate: 2 CLICKS (2)Tramadol HCl: 50 - 100 MG Allergies Coded Allergies: Penicillins (Severe, 01/15/16) Sulfa Drugs (Severe, 01/15/16) Ibuprofen (Intermediate, HURTS STOMACH 01/15/16) Physical Exam Vital Signs / I&Os Vital Signs Date Time Temp Pulse Resp B/P Pulse O2 O2 Flow FiO2 Ox Delivery Rate 03/27 0649 98.4 85 19 125/82 95 Room Air 03/27 0245 70 14 116/72 97 Room Air 03/26 2222 99.0 03/26 2221 75 14 125/79 96 Room Air 03/26 1838 99.1 81 16 113/77 93 Room Air I&O 03/27 0000 03/26 1600 03/26 0800 Intake Total 0 Output Total 1450 Balance -1450 General Appearance Alert, Oriented X3, Cooperative, No acute distress Lungs Scattered rhonchi. No wheezes. Cardiovascular Regular rate and rhythm, Normal S1 and S2 Abdomen Normal bowel sounds, Soft, mild epigastric/upper quadrant tenderness. No rebound Extremities No cyanosis, No clubbing Neurological Cranial nerves intact, No lateralizing signs Psych/Mental Status Mental status normal, Mood normal LAB Results Laboratory Tests 03/27 03/27 03/26 03/26 0445 0445 1650 1415 Chemistry Plasma Sodium (136 - 145 mmol/L) 140 Plasma Potassium (3.5 - 5.1 mmol/L) 4.1 Plasma Chloride (98 - 107 mmol/L) 105 CO2 (Enzymatic) (21 - 32 mmol/L) 25 BUN (7 - 18 mg/dL) 4 Creatinine (0.6 - 1.3 mg/dL) 0.6 Est GFR ( Amer) (mL/min) >60 Est GFR (Non-Af Amer) (mL/min) >60 Glucose (70 - 110 mg/dL) 85 Hemoglobin A1c % (4.5 - 6.2 %) 5.3 Lactic Acid (0.4 - 2.0 mmol/L) 0.5 Plasma Calcium (8.5 - 10.1 mg/dL) 8.1 Plasma Magnesium (1.8 - 2.4 mg/dL) 1.9 Total Bilirubin (0.0 - 1.0 mg/dL) 0.5 AST (15 - 37 U/L) 211 ALT (12 - 78 U/L) 111 Alkaline Phosphatase (46 - 116 U/L) 177 Total Protein (6.4 - 8.2 g/dL) 6.1 Albumin (3.3 - 5.0 g/dL) 2.7 Triglycerides (30 - 200 mg/dL) 21 Amylase (25 - 115 U/L) 330 Lipase (73 - 393 U/L) 2746 Coagulation INR (0.8 - 1.2) 1.0 Hematology WBC (4.5 - 11.5 K/uL) 6.8 RBC (4.00 - 5.20 M/uL) 3.63 Hgb (12.0 - 16.0 gm/dL) 11.6 Hct (36.0 - 46.0 %) 34.9 MCV (80 - 100 fL) 96 MCH (26 - 34 pg) 32 RDW (11.6 - 14.8 %) 15.4 Neut % (Auto) (50 - 75 %) 84.6 Lymph % (Auto) (25 - 40 %) 8.9 Leon % (Auto) (3 - 14 %) 3.7 Eos % (Auto) (0 - 4 %) 2.7 Baso % (Auto) (0 - 2 %) 0.1 Plt Count, EDTA (150 - 400 K/uL) 203 PUBS MCHC (31 - 37 g/dL) 33 Toxicology Urine Opiates Screen (NEGATIVE) NEGATIVE Urine Methadone Screen (NEGATIVE) NEGATIVE Ur Barbiturates Screen (NEGATIVE) NEGATIVE U Amphetamin/Meth Scrn (NEGATIVE) NEGATIVE MDMA (Ecstasy) Screen (NEGATIVE) NEGATIVE U Benzodiazepines Scrn (NEGATIVE) NEGATIVE Urine Cocaine Screen (NEGATIVE) NEGATIVE U Cannabinoids Screen (NEGATIVE) NEGATIVE Urines Urine Color YELLOW Urine Appearance CLEAR Urine pH (5.0 - 8.0) 7.0 Ur Specific [place] (1.010 - 1.030) <= 1.005 Urine Protein (NEGATIVE) NEGATIVE Urine Ketones (NEGATIVE) NEGATIVE Urine Blood (NEGATIVE) NEGATIVE Urine Nitrite (NEGATIVE) NEGATIVE Urine Bilirubin (NEGATIVE) NEGATIVE Urine Urobilinogen (0.2 - 1.0 EU/dL) 0.2 Ur Leukocyte Esterase (NEGATIVE) NEGATIVE Urine RBC (0 - 1 rbc/hpf) NONE SEEN Urine WBC (0 - 1 wbc/hpf) 0-1 Ur Epithelial Cells (0 - 5 EPI/hpf) NONE SEEN Urine Bacteria (NONE SEEN) MANY (4+) Urine Glucose (NEGATIVE) NEGATIVE Urine Comment CULTURE INDICATED 03/26 03/26 03/26 1350 1350 1345 Chemistry Troponin (0.00 - 1.5 ng/mL) <0.05 Amylase (25 - 115 U/L) 294 Lipase (73 - 393 U/L) 5489 Procalcitonin (0 - 0.5 ng/mL) <0.5 Coagulation INR (0.8 - 1.2) 0.9 APTT (24 - 34 SECONDS) 31 Hematology WBC Cancelled RBC Cancelled Hgb Cancelled Hct Cancelled MCV Cancelled MCH Cancelled RDW Cancelled Plt Count, EDTA Cancelled PUBS MCHC Cancelled Toxicology Plasma/Serum Ethyl Alc (3 - 10 mg/dL) <3 Microbiology Date/Time Procedure - Status Source Growth 03/26 1845 MRSA Screen - RECD NASAL 03/26 1415 Urine Culture - RECD URINE CC Imaging CT Scan Abdomen IMPRESSION: 1. Mild inflammatory changes of the pancreas and second segment of the duodenum, with mild dilation pancreatic duct. Overall appearance is consistent with pancreatitis, although duodenitis / peptic disease might be considered. 2. Associated small amount of retroperitoneal fluid surrounding the duodenum and pancreatic tail. 3. Mild dilation of the common bile duct (8 mm). Consider occult common duct stone. 4. Moderate fatty infiltration of the liver. 5. There is a 30% old compression deformity T10 vertebral body. 6. Findings discussed with Lizy Craven, PAC. Dictated by: ALON CULP MD D: AGUSTINA;03/26/17 5253 Assessment and Plan Problem List 1. Acute pancreatitis Plan -Patient with findings of acute pancreatitis -No clear relation to alcohol consumption -No hyperlipidemia -Possible gallstone related. -Mild dilatation of common bile duct without evidence of stone at this time. -No hyperbilirubinemia -Recheck labs in a.m. consider HIDA scan if persistent elevation of alkaline phosphatase, bilirubin -Nothing by mouth -IV fluid therapy 2. Fibromyalgia Plan -Stable -Continue outpatient medical management as appropriate 3. Schizophrenia Status Chronic Onset Date Unknown Plan -Stable -Continue outpatient medical management 4. Nicotine dependence Plan -NicoDerm patch -Encourage smoking cessation -Smoking cessation education 5. UTI (urinary tract infection) Status Acute Onset Date Unknown Plan -Patient with findings of UTI -Rocephin 1 g IV daily -Await urine C&S 6. Alcohol use Plan -Mild use per patient's history -Monitor. Alcohol withdrawal symptoms Current status: Fair, stable Anticipated discharge date: Anticipated discharge 3 days Anticipated discharge placement: Home Patient care time: Time spent in chart review, patient interview, physical exam, CPOE, and care documentation: 25 minutes Visit to patient today: 1 Complexity of care: Moderate E&M Codes Rounding: Inpt-Moderate/82096
[2017-03-27] MEDS ORDERED: NORTRIPTYLINE H25 MG PO (09:11)
[2017-03-27] MEDS ORDERED: PERPHENAZINE8 MG PO (09:12)
[2017-03-28 03:27] VITALS: BP 127/86
[2017-03-28 06:01] VITALS: BP 117/85
--- NOTE | 2017-03-28 08:23 | Progress Note ---
Subjective General This patient is a 36-year-old white female with a significant past medical history of paranoid schizophrenia, depression, asthma, fibromyalgia, nicootene dependance alcohol use who presented to [facility] emergency room on the day of admission secondary to complaints of pain in the abdominal region. Patient had previously been at the [facility] urgent care clinic where an elevated lipase was discovered. found. She was transferred to the the [facility] ED for further evaluations. CT scan and ultrasound study of the pancreas and gallbladder showed possibility of a stone had passed. Also showing were elevated transaminases, but a normal T bili. Secondary to the above, the patient was admitted by Alejandro Robles M.D. for further evaluation and treatment. Still has pain in Abdomen, some nause, no vomiting, no BM yet, mild fever, no chills, no cp no dyspnea, sleeping fine, still NPO, has nicotin patch on ROS: Digestion system: negative for Abdominal pain, Vomiting, but mild nausea Constitional: Mild fever, no chills Cardiology: negative for Chest pain, dyspnea Physical Exam Vital Signs / I&Os Vital Signs Date Time Temp Pulse Resp B/P Pulse O2 O2 Flow FiO2 Ox Delivery Rate 03/28 0601 98.2 91 20 117/85 94 Room Air 03/28 0327 97.3 92 18 127/86 95 Room Air 03/27 2240 97.0 94 18 124/92 94 Room Air 03/27 1946 98.4 84 18 141/91 94 03/27 1808 98.2 63 20 136/81 96 03/27 1423 98.8 80 20 122/82 96 03/27 1131 98.8 88 20 123/84 96 Room Air I&O 03/28 0000 03/27 1600 03/27 0800 Intake Total 1433 0 1486 Output Total 800 675 Balance 633 -675 1486 General Appearance No acute distress Lungs Clear to auscultation Neck Supple Cardiovascular Regular rate and rhythm, Normal S1 and S2 Abdomen tender, soft, BS are hypoactive Skin No Rashes Psych/Mental Status Mental status normal LAB Results Laboratory Tests 03/28 0555 Chemistry Plasma Sodium (136 - 145 mmol/L) 143 Plasma Potassium (3.5 - 5.1 mmol/L) 4.5 Plasma Chloride (98 - 107 mmol/L) 105 CO2 (Enzymatic) (21 - 32 mmol/L) 24 BUN (7 - 18 mg/dL) 6 Creatinine (0.6 - 1.3 mg/dL) 0.6 Est GFR ( Amer) (mL/min) >60 Est GFR (Non-Af Amer) (mL/min) >60 Glucose (70 - 110 mg/dL) 60 Plasma Calcium (8.5 - 10.1 mg/dL) 8.4 Total Bilirubin (0.0 - 1.0 mg/dL) 0.4 AST (15 - 37 U/L) 84 ALT (12 - 78 U/L) 89 Alkaline Phosphatase (46 - 116 U/L) 177 Total Protein (6.4 - 8.2 g/dL) 6.1 Albumin (3.3 - 5.0 g/dL) 3.0 Amylase (25 - 115 U/L) 171 Lipase (73 - 393 U/L) 1782 Hematology WBC (4.5 - 11.5 K/uL) 6.2 RBC (4.00 - 5.20 M/uL) 3.80 Hgb (12.0 - 16.0 gm/dL) 12.1 Hct (36.0 - 46.0 %) 36.8 MCV (80 - 100 fL) 97 MCH (26 - 34 pg) 32 RDW (11.6 - 14.8 %) 14.9 Neut % (Auto) (50 - 75 %) 75.2 Lymph % (Auto) (25 - 40 %) 13.9 [place] % (Auto) (3 - 14 %) 7.4 Eos % (Auto) (0 - 4 %) 3.4 Baso % (Auto) (0 - 2 %) 0.1 Plt Count, EDTA (150 - 400 K/uL) 236 PUBS MCHC (31 - 37 g/dL) 33 Assessment and Plan Problem List 1. Acute pancreatitis Plan continue IV hydration and npo, since still has symptoms and lipase elevated but getting better 2. UTI (urinary tract infection) Status Acute Onset Date Unknown Plan continue Rocephin, IV 3. Schizophrenia Status Chronic Onset Date Unknown
[2017-03-28 10:42] VITALS: BP 120/85
[2017-03-28 14:48] VITALS: BP 133/88
[2017-03-28 19:20] VITALS: BP 114/81
--- NOTE | 2017-03-28 19:21 | DIAGNOSTIC IMAGING REPORT ---
PROCEDURE: NM HEPATOBILIARY IMAGING INDICATION: pancreatitis TECHNIQUE: 8 mCi of technetium-99m Choletec was injected intravenously and images were acquired over a 45-minute hour time interval. Gallbladder did not visualize after 45 minutes and the patient was given 3 mg of morphine sulfate and an additional 4 mCi of dictation Choletec. Subsequently, with fatty shake was given. COMPARISON: Abdominal ultrasound 03/26/2017 FINDINGS: There is homogeneous radiotracer uptake of the liver. Small bowel activity is seen at 25 minutes. Following administration of 3 mg of morphine sulfate, gallbladder visualized. Ejection fraction following a fatty shake is inaccurate since the patient received morphine sulfate (which contracts the sphincter of Oddi) prior to the shake. IMPRESSION: 1. Patent cystic and common bile ducts 2. Results discussed with Dr. Coe.
[2017-03-28 23:33] VITALS: BP 104/78
[2017-03-29 02:13] VITALS: BP 143/88
[2017-03-29 07:00] VITALS: BP 113/71
--- NOTE | 2017-03-29 07:41 | Progress Note ---
Subjective General The patient is a 36-year-old white female with a significant past medical history of paranoid schizophrenia, depression, asthma, fibromyalgia, nicootene dependance alcohol use who presented to [facility] emergency room on the day of admission secondary to complaints of pain in the abdominal region. Patient had previously been at the [facility] urgent care clinic where an elevated lipase was discovered. found. She was transferred to the the [facility] ED for further evaluations. CT scan and ultrasound study of the pancreas and gallbladder showed possibility of a stone had passed. Also showing were elevated transaminases, but a normal T bili. Secondary to the above, the patient was admitted by Alejandro Robles M.D. for further evaluation and treatment. Still has abdominal pain, no nausea or vomiting, no BM yet, no fever or chills, no disuria or frequency, feels hungry would like something to eat Review of system: GI: Negative for abdomen pain nausea vomiting no BM yet Constitutional: Negative for fever or chills Urogenital system: Negative for dysuria or frequency Physical Exam Vital Signs / I&Os Vital Signs Date Time Temp Pulse Resp B/P Pulse O2 O2 Flow FiO2 Ox Delivery Rate 03/29 0213 98.2 74 14 143/88 91 Room Air 03/28 2333 98.4 67 16 104/78 98 Room Air 03/28 1920 98.2 89 20 114/81 96 Room Air 03/28 1448 98.1 73 20 133/88 94 03/28 1042 98.2 76 20 120/85 95 Room Air I&O 03/29 0000 03/28 1600 03/28 0800 Intake Total 0 0 551 Output Total 100 500 Balance -100 -500 551 General Appearance No acute distress Lungs Clear to auscultation Neck Supple Cardiovascular Regular rate and rhythm, Normal S1 and S2, No murmurs, gallops, rubs Abdomen Normal bowel sounds (tenderness preumbilical area), Soft Extremities No edema Skin No Rashes Psych/Mental Status Mental status normal LAB Results Laboratory Tests 03/29 0535 Chemistry Plasma Sodium (136 - 145 mmol/L) 140 Plasma Potassium (3.5 - 5.1 mmol/L) 4.7 Plasma Chloride (98 - 107 mmol/L) 104 CO2 (Enzymatic) (21 - 32 mmol/L) 26 BUN (7 - 18 mg/dL) 6 Creatinine (0.6 - 1.3 mg/dL) 0.5 Est GFR ( Amer) (mL/min) >60 Est GFR (Non-Af Amer) (mL/min) >60 Glucose (70 - 110 mg/dL) 74 Plasma Calcium (8.5 - 10.1 mg/dL) 8.6 Amylase (25 - 115 U/L) 164 Lipase (73 - 393 U/L) 1872 Hematology WBC (4.5 - 11.5 K/uL) 4.6 RBC (4.00 - 5.20 M/uL) 3.84 Hgb (12.0 - 16.0 gm/dL) 12.2 Hct (36.0 - 46.0 %) 37.3 MCV (80 - 100 fL) 97 MCH (26 - 34 pg) 32 RDW (11.6 - 14.8 %) 15.1 Neut % (Auto) (50 - 75 %) 59.1 Lymph % (Auto) (25 - 40 %) 25.1 [place] % (Auto) (3 - 14 %) 11.2 Eos % (Auto) (0 - 4 %) 4.2 Baso % (Auto) (0 - 2 %) 0.4 Plt Count, EDTA (150 - 400 K/uL) 318 PUBS MCHC (31 - 37 g/dL) 33 Microbiology Date/Time Procedure - Status Source Growth 03/29 0830 MRSA Screen - RECD NOSE Assessment and Plan Problem List 1. Acute pancreatitis Plan continue NPO and IV hydration, monitor sims. enzymes, not down today 2. UTI (urinary tract infection) Status Acute Onset Date Unknown Plan continue IV Rocephin, at least for 3 days 3. Schizophrenia in remission Plan stable 4. Alcohol use Plan ETOH withrawal protocol as needed
[2017-03-29 11:14] VITALS: BP 131/88
[2017-03-29 14:00] VITALS: BP 120/73
[2017-03-29 18:00] VITALS: BP 117/83
[2017-03-29 22:57] VITALS: BP 121/64
[2017-03-30 02:38] VITALS: BP 127/84
--- NOTE | 2017-03-30 07:42 | Progress Note ---
Subjective General The patient is a 36-year-old white female with a significant past medical history of paranoid schizophrenia, depression, asthma, fibromyalgia, nicootene dependance alcohol use who presented to [facility] emergency room on the day of admission secondary to complaints of pain in the abdominal region. Patient had previously been at the [facility] urgent care clinic where an elevated lipase was discovered. found. She was transferred to the the [facility] ED for further evaluations. CT scan and ultrasound study of the pancreas and gallbladder showed possibility of a stone had passed. Also showing were elevated transaminases, but a normal T bili. Secondary to the above, the patient was admitted by Alejandro Robles M.D. for further evaluation and treatment. Abdominal pain is much better, no nausea or vomiting no BM yet , no fever or chills, no dyspnea or chest pain Review of system: GI: Negative for nausea vomiting no bowel movements Constitutional: No fever no chills Respiratory: Negative for dyspnea or chest pain Physical Exam Vital Signs / I&Os Vital Signs Date Time Temp Pulse Resp B/P Pulse O2 O2 Flow FiO2 Ox Delivery Rate 03/30 0248 Room Air 03/30 0238 98.2 67 14 127/84 97 Room Air 03/29 2257 98.4 70 15 121/64 96 Room Air 03/29 1800 98.4 76 18 117/83 95 Room Air 03/29 1630 Room Air 03/29 1400 98.4 96 18 120/73 95 Room Air 03/29 1114 98.2 70 18 131/88 92 Room Air 03/29 0800 Room Air I&O 03/30 0000 03/29 1600 03/29 0800 Intake Total 760 633 2598 Output Total 650 1000 1275 Balance 167 -156 105 General Appearance No acute distress Lungs Clear to auscultation Neck Supple Cardiovascular Regular rate and rhythm, Normal S1 and S2, No murmurs, gallops, rubs Abdomen Normal bowel sounds, Soft, No tenderness Extremities No edema Psych/Mental Status Mental status normal LAB Results Laboratory Tests 03/30 0555 Chemistry Plasma Sodium (136 - 145 mmol/L) 141 Plasma Potassium (3.5 - 5.1 mmol/L) 4.0 Plasma Chloride (98 - 107 mmol/L) 105 CO2 (Enzymatic) (21 - 32 mmol/L) 25 BUN (7 - 18 mg/dL) 5 Creatinine (0.6 - 1.3 mg/dL) 0.6 Est GFR ( Amer) (mL/min) >60 Est GFR (Non-Af Amer) (mL/min) >60 Glucose (70 - 110 mg/dL) 79 Plasma Calcium (8.5 - 10.1 mg/dL) 8.3 Amylase (25 - 115 U/L) 245 Lipase (73 - 393 U/L) 1325 Hematology WBC (4.5 - 11.5 K/uL) 5.2 RBC (4.00 - 5.20 M/uL) 3.77 Hgb (12.0 - 16.0 gm/dL) 11.9 Hct (36.0 - 46.0 %) 36.4 MCV (80 - 100 fL) 97 MCH (26 - 34 pg) 32 RDW (11.6 - 14.8 %) 15.1 Neut % (Auto) (50 - 75 %) 51.5 Lymph % (Auto) (25 - 40 %) 31.9 [place] % (Auto) (3 - 14 %) 12.8 Eos % (Auto) (0 - 4 %) 3.0 Baso % (Auto) (0 - 2 %) 0.8 Plt Count, EDTA (150 - 400 K/uL) 342 PUBS MCHC (31 - 37 g/dL) 33 Microbiology Date/Time Procedure - Status Source Growth 03/29 0830 MRSA Screen - RECD NOSE Assessment and Plan Problem List 1. Acute pancreatitis Plan imroving but lipase still high plan to start diet tommorrow and discharge 2. UTI (urinary tract infection) Status Acute Onset Date Unknown Plan one more day of Rocephin should be enough 3. Schizophrenia in remission Plan stable
--- NOTE | 2017-03-30 07:42 | Progress Note ---
Subjective General The patient is a 36-year-old white female with a significant past medical history of paranoid schizophrenia, depression, asthma, fibromyalgia, nicootene dependance alcohol use who presented to [facility] emergency room on the day of admission secondary to complaints of pain in the abdominal region. Patient had previously been at the [facility] urgent care clinic where an elevated lipase was discovered. found. She was transferred to the the [facility] ED for further evaluations. CT scan and ultrasound study of the pancreas and gallbladder showed possibility of a stone had passed. Also showing were elevated transaminases, but a normal T bili. Secondary to the above, the patient was admitted by Alejandro Robles M.D. for further evaluation and treatment. Abdominal pain is much better, no nausea or vomiting no BM yet , no fever or chills, no dyspnea or chest pain Review of system: GI: Negative for nausea vomiting no bowel movements Constitutional: No fever no chills Respiratory: Negative for dyspnea or chest pain Physical Exam Vital Signs / I&Os Vital Signs Date Time Temp Pulse Resp B/P Pulse O2 O2 Flow FiO2 Ox Delivery Rate 03/30 0248 Room Air 03/30 0238 98.2 67 14 127/84 97 Room Air 03/29 2257 98.4 70 15 121/64 96 Room Air 03/29 1800 98.4 76 18 117/83 95 Room Air 03/29 1630 Room Air 03/29 1400 98.4 96 18 120/73 95 Room Air 03/29 1114 98.2 70 18 131/88 92 Room Air 03/29 0800 Room Air I&O 03/30 0000 03/29 1600 03/29 0800 Intake Total 885 405 8098 Output Total 650 1000 1275 Balance 167 -156 105 General Appearance No acute distress Lungs Clear to auscultation Neck Supple Cardiovascular Regular rate and rhythm, Normal S1 and S2, No murmurs, gallops, rubs Abdomen Normal bowel sounds, Soft, No tenderness Extremities No edema Psych/Mental Status Mental status normal LAB Results Laboratory Tests 03/30 0555 Chemistry Plasma Sodium (136 - 145 mmol/L) 141 Plasma Potassium (3.5 - 5.1 mmol/L) 4.0 Plasma Chloride (98 - 107 mmol/L) 105 CO2 (Enzymatic) (21 - 32 mmol/L) 25 BUN (7 - 18 mg/dL) 5 Creatinine (0.6 - 1.3 mg/dL) 0.6 Est GFR ( Amer) (mL/min) >60 Est GFR (Non-Af Amer) (mL/min) >60 Glucose (70 - 110 mg/dL) 79 Plasma Calcium (8.5 - 10.1 mg/dL) 8.3 Amylase (25 - 115 U/L) 245 Lipase (73 - 393 U/L) 1325 Hematology WBC (4.5 - 11.5 K/uL) 5.2 RBC (4.00 - 5.20 M/uL) 3.77 Hgb (12.0 - 16.0 gm/dL) 11.9 Hct (36.0 - 46.0 %) 36.4 MCV (80 - 100 fL) 97 MCH (26 - 34 pg) 32 RDW (11.6 - 14.8 %) 15.1 Neut % (Auto) (50 - 75 %) 51.5 Lymph % (Auto) (25 - 40 %) 31.9 [place] % (Auto) (3 - 14 %) 12.8 Eos % (Auto) (0 - 4 %) 3.0 Baso % (Auto) (0 - 2 %) 0.8 Plt Count, EDTA (150 - 400 K/uL) 342 PUBS MCHC (31 - 37 g/dL) 33 Microbiology Date/Time Procedure - Status Source Growth 03/29 0830 MRSA Screen - RECD NOSE Assessment and Plan Problem List 1. Acute pancreatitis Plan imroving but lipase still high plan to start diet tommorrow and discharge 2. UTI (urinary tract infection) Status Acute Onset Date Unknown Plan one more day of Rocephin should be enough 3. Schizophrenia in remission Plan stable
[2017-03-30 08:36] VITALS: BP 116/83
[2017-03-30 11:22] VITALS: BP 118/80
[2017-03-30 14:36] VITALS: BP 131/88
[2017-03-30 18:00] VITALS: BP 117/78
[2017-03-30 22:33] VITALS: BP 108/75
[2017-03-31 02:48] VITALS: BP 112/60
[2017-03-31 06:48] VITALS: BP 125/93
--- NOTE | 2017-03-31 09:42 | Progress Note ---
Subjective General Still has nausea and abd. pain, no BM, no fever no chills, no disuria or frequency, pt feels hungry, was taking lots of oral medications with water Physical Exam Vital Signs / I&Os Vital Signs Date Time Temp Pulse Resp B/P Pulse O2 O2 Flow FiO2 Ox Delivery Rate 03/31 0648 98.1 79 20 125/93 96 Room Air 0.0 03/31 0248 98.6 72 14 112/60 96 Room Air 03/31 0215 Room Air 03/30 2233 98.2 89 17 108/75 94 Room Air 03/30 1800 98.6 92 18 117/78 95 Room Air 03/30 1554 Room Air 03/30 1436 98.1 70 16 131/88 97 Room Air 03/30 1122 98.1 78 15 118/80 93 I&O 03/31 0000 03/30 1600 03/30 0800 Intake Total 0 885 716 Output Total 115 105 5089 Balance -700 385 -684 General Appearance Mild distress Lungs Clear to auscultation Neck Supple Cardiovascular Regular rate and rhythm, Normal S1 and S2, No murmurs, gallops, rubs Abdomen Soft, tender, BS hypoactive Extremities No edema Skin No Rashes Psych/Mental Status Mental status normal LAB Results Laboratory Tests 03/31 03/31 0535 0535 Chemistry Plasma Sodium (136 - 145 mmol/L) 142 Plasma Potassium (3.5 - 5.1 mmol/L) 4.2 Plasma Chloride (98 - 107 mmol/L) 106 CO2 (Enzymatic) (21 - 32 mmol/L) 24 BUN (7 - 18 mg/dL) 5 Creatinine (0.6 - 1.3 mg/dL) 0.6 Est GFR ( Amer) (mL/min) >60 Est GFR (Non-Af Amer) (mL/min) >60 Glucose (70 - 110 mg/dL) 70 Plasma Calcium (8.5 - 10.1 mg/dL) 8.5 Amylase (25 - 115 U/L) 271 Lipase (73 - 393 U/L) 1346 Hematology WBC (4.5 - 11.5 K/uL) 4.5 RBC (4.00 - 5.20 M/uL) 3.91 Hgb (12.0 - 16.0 gm/dL) 12.3 Hct (36.0 - 46.0 %) 37.7 MCV (80 - 100 fL) 96 MCH (26 - 34 pg) 32 RDW (11.6 - 14.8 %) 14.7 Neut % (Auto) (50 - 75 %) 47.4 Lymph % (Auto) (25 - 40 %) 33.9 [place] % (Auto) (3 - 14 %) 13.6 Eos % (Auto) (0 - 4 %) 4.1 Baso % (Auto) (0 - 2 %) 1.0 Plt Count, EDTA (150 - 400 K/uL) 352 PUBS MCHC (31 - 37 g/dL) 33 Assessment and Plan Problem List 1. Acute pancreatitis Plan will stop all oral medication since pt is not improving and lipase increased 2. UTI (urinary tract infection) Status Acute Onset Date Unknown Plan recieved abx, should be resolved now 3. Schizophrenia in remission
[2017-03-31 10:24] VITALS: BP 121/87
--- NOTE | 2017-04-14 09:58 | DISCHARGE SUMMARY ---
ADMIT DATE: 03/26/2017 DISCHARGE DATE: 03/31/2017 DISCHARGE DIAGNOSES: 1. Acute pancreatitis 2. Schizophrenia 3. Fibromyalgia BRIEF HISTORY: This is a 36-year-old white female who was admitted on 03/26/2017 , presented to emergency department for worsening abdominal pain associated with nausea 1 day before the admission, but no hematuria, hematochezia or muscle aches. No vomiting. In the emergency department, workup showed the patient had acute pancreatitis. HOSPITAL COURSE: The patient was admitted to the hospital and was started on IV hydration, n.p.o., and pain management, but the patient's hospital course indicated that the patient was not totally compliant in nurses report, and the conversation the nurses had with the family, it looks like the patient was not compliant with n.p.o. and was drinking and eating without our knowledge or permission. So that is why the pancreatitis symptoms continued for the fifth day with elevated pancreatic enzymes, lipase and amylase and with some swinging in the numbers but stayed high. DISCHARGE INSTRUCTIONS/MEDICATIONS: I was unable to take the patient off n.p.o. and feed her and send her home. The patient actually was not liking this and wanted to go back to eating and drinking without resolving the symptoms of pancreatitis. That is why the patient decided to leave [place] on the fifth day of hospitalization.
== END 2017-03-31 13:30 | disposition left against medical advice (07) | DRG 282 ==
LOC: ED SRH 13:28 → TRANS SRH 16:57 → CC SRH 16:57 → ACUTE2 SRH 03-27 19:21
PROVIDERS: ADMIT Pediatrics
DX: K85.90 Acute pancreatitis without necrosis or infection, unspecified (principal); K76.0 Fatty (change of) liver, not elsewhere classified; N39.0 Urinary tract infection, site not specified; F10.239 Alcohol dependence with withdrawal, unspecified; F20.0 Paranoid schizophrenia; M79.7 Fibromyalgia; F17.210 Nicotine dependence, cigarettes, uncomplicated
CPT/HCPCS: 84351; 87115; 90004; 90047; 90074; 90100; 90148; 90469; 90616; 91286; 92010; 92031; 92132; 92235; 92530; 92720; 92760; 92761; 92762; 92763; 92764; 92765; 92766; 92767; 92855; 93004; 94001; 94060; 95059